=== PATIENT | male | born 1975 | race Caucasian/White ===

== ENCOUNTER 2016-03-28 07:18 | Emergency (ER) | payer OTHER ==
[2016-03-28 07:32] VITALS: BP 130/74; PULSE 85; TEMP 97.9; BMI 34.2
[2016-03-28] MEDS ORDERED: KETOROLAC TROMETHAMINE 60 MG/2 ML VIAL IM ONE (07:59)
[2016-03-28] MEDS ORDERED: CYCLOBENZAPRINE HCL 10 MG TABLET (FP) PO ONE (07:59)
[2016-03-28] MEDS ORDERED: CYCLOBENZAPRINE HCL 10 MG TABLET (FP) ONE (08:02)
[2016-03-28] MEDS ORDERED: KETOROLAC TROMETHAMINE 60 MG/2 ML VIAL ONE (08:02)
--- NOTE | 2016-03-28 08:03 | PDOC ---
History of Present Illness - General Chief Complaint: Back Pain Stated Complaint: UPPER BACK PAIN Time Seen by Provider: 03/28/16 07:42 - History of Present Illness Initial Comments: 03/28/16 12:38 Chief complaint: Right upper back pain History of present illness: Sharp intermittent right upper back pain for several days, aggravated by movement and deep inspiration. No trauma, injury, or unusual physical exertion. Review of systems: No fevers/chills, cough, URI symptoms, sore throat, anterior chest pain, shortness of breath, abdominal pain, nausea, vomiting, diarrhea, visual or focal neurologic symptoms Past medical history: On disability for chronic low back pain. Pain is now stable. Social/family history reviewed and noncontributory Physical exam: Alert and oriented well-developed well-nourished no acute distress cooperative Afebrile, vital signs normal Head atraumatic. PERRLA, fundi benign, ENT clear Neck supple without mass or nodes Chest clear No chest wall and rib cage deformity or tenderness. No trigger point tenderness could be elicited the posterior chest CV S1 and S2 normal without murmur or gallop pulses full and symmetric no JVD or edema no bruits Abdomen soft nontender without mass or organomegaly. No CVAT Impression: Musculoskeletal pain, right upper back, no sign of cardiac or pulmonary disease Plan: Symptomatic treatment, rest, heat, and follow up primary physician if no improvement. Return to ER if further symptoms develop. Patient fully ambulatory and in no pain or other distress upon discharge with family to follow up as directed Past History - Past Medical History Allergies/Adverse Reactions: Allergies Allergy/AdvReac Type Severity Reaction Status Date / Time No Known Allergies Allergy Verified 03/28/16 07:25 Home Medications: Ambulatory Orders Sertraline HCl [Zoloft -] 150 mg PO DAILY 08/30/13 Aripiprazole [Abilify -] 25 mg PO DAILY 09/06/14 Cyclobenzaprine HCl [Flexeril] 10 mg PO TID #14 tablet 03/28/16 Diazepam [Valium] 10 mg PO ONCE 03/28/16 Ibuprofen [Motrin -] 800 mg PO DAILY 03/28/16 Anemia: No Asthma: No Cancer: No Cardiac Disorders: No CVA: No COPD: No CHF: No Dementia: No Diabetes: Yes (on/off meds, lost weight ) GI Disorders: No Disorders: No HTN: No Hypercholesterolemia: No Liver Disease: No Psychiatric Problems: (ANXIETY) Suicide Attempt (Hx): No Seizures: No Thyroid Disease: No Other medical history: CHRONIC LOW BACK PAIN - Surgical History Abdominal Surgery: Yes (bariatric surgery) Appendectomy: No Cardiac Surgery: No Cholecystectomy: No Lung Surgery: No Neurologic Surgery: No Orthopedic Surgery: No - Family Disease History Family Disease History: Diabetes: Grandparents, Mother - Psycho/Social/Smoking Cessation Hx Anxiety: Yes Suicidal Ideation: No Smoking Status: Yes Smoking History: Current some day smoker Have you smoked in the past 12 months: Yes Number of Cigarettes Smoked Daily: 3 Information on smoking cessation initiated: Yes 'Breaking Loose' booklet given: 03/28/16 Hx Alcohol Use: No Drug/Substance Use Hx: No Substance Use Type: None Hx Substance Use Treatment: No *Physical Exam - Vital Signs Last Vital Signs Temp Pulse Resp BP Pulse Ox 97.9 F 85 16 130/74 97 03/28/16 07:28 03/28/16 07:28 03/28/16 07:28 03/28/16 07:28 03/28/16 07:28 *DC/Admit/Observation/Transfer Diagnosis at time of Disposition: Musculoskeletal pain - Discharge Dispostion Disposition: HOME Condition at time of disposition: Improved Admit: No - Prescriptions Prescriptions: Cyclobenzaprine HCl [Flexeril] 10 mg PO TID #14 tablet - Patient Instructions Printed Discharge Instructions: DI for Musculoskeletal Pain Additional Instructions: Rest, apply heat to the affected area, take medication as directed. If no improvement, discuss with your back specialist during a regular visit next week. If further symptoms develop or if the pain worsens, see primary physician or return to the emergency room.
== END 2016-03-28 09:11 | disposition home or self-care (01) ==
LOC: FER 07:18
PROC: 3E0233Z Introduction of Anti-inflammatory into Muscle, Percutaneous Approach (ICD-10-PCS; principal; 2016-03-28)
DX: M79.1 Myalgia (principal); G89.29 Other chronic pain; F41.9 Anxiety disorder, unspecified; E11.9 Type 2 diabetes mellitus without complications; Z98.84 Bariatric surgery status; F17.210 Nicotine dependence, cigarettes, uncomplicated
CPT/HCPCS: 99282-25

== ENCOUNTER 2017-01-02 18:39 | Observation (INO) | payer OTHER ==
--- NOTE | 2017-01-02 19:12 | PDOC ---
History of Present Illness - General History Source: Patient Exam Limitations: No Limitations - History of Present Illness Initial Comments: 01/02/17 19:35 41 y/o M with PMHx of previous diabetes (no currently on medications), lap band surgery, presents to the ED with epigastric pain and productive cough for a week. He states he has coughed up green-brown sputum. Patient also reports occasional chills, subjective fever, headache and sore throat. He also states he shaved his scrotum and had an ingrown hair that he continued to pick at. He states it bled a little but is now draining pus. Patient reports to smoking 2-3 cigarettes per day. He denies chest pain, SOB. Denies nausea, vomiting, diarrhea. Denies urinary complaints. PAST MEDICAL HISTORY: previous diabetes PAST SURGICAL HISTORY: lap band surgery FAMILY HISTORY: no pertinent history SOCIAL HISTORY: Pt lives with family and is employed. MEDICATIONS: reviewed ALLERGIES: As per nursing notes Review of Systems: General: (+) chills, subjective fever. No weakness, no weight loss HEENT: (+) sore throat. No change in vision. No ear pain CardioVascular: No chest pain or shortness of breath Respiratory: (+) productive cough, sore throat. No wheezing. Gastrointestinal: (+) epigastric pain. no nausea, vomiting, diarrhea or constipation, No rectal bleeding Genitourinary: (+) testicular abscess. No dysuria, hematuria, or frequency Musculoskeletal: No joint or muscle pain or swelling Neurologic: (+) headache. No vertigo, dizziness or loss of consciousness Psychiatric: No depression Skin: No rashes or easy bruising Endocrine: No increased thirst or abnormal weight change Allergic: No skin or latex allergy All other systems reviewed and normal Physical Exam: General: Well-nourished well-developed individual, no acute distress HEENT: Throat: Normal, tonsils normal, no erythema or exudate Neck: Supple, no meningeal signs, no lymphadenopathy Eyes: Pupils equal reactive and round, extraocular motion intact Chest: Nontender to palpation Cardiac: S1-S2 normal, regular rate and rhythm, no murmurs rubs or gallops Respiratory: Lungs clear to auscultation bilateral Abdomen: Soft, nondistended, normal bowel sounds, nontender to palpation diffusely Extremities: Warm, dry, no cyanosis, clubbing, or edema Skin: No rashes Neuro: Alert and oriented x3, nonfocal exam, grossly intact, normal gait Psych: Normal mood and affect : right upper scrotum has 3 x 4 cm area of induration with a draining abscess. Abscess opening is approximately cm with purulent discharge. Right sided inguinal lymphadenopathy. No tenderness or increased discomfort on palpation of the testicle. <Bess Regan A - Last Filed: 01/02/17 20:02> - General History Source: Patient Exam Limitations: No Limitations - History of Present Illness Initial Comments: 01/02/17 22:45 A portion of this note was documented by scribe services under my direction. I have reviewed the details of the note, within reason, and agree with the documentation. The case summary and management plan written by me. ASSESSMENT and plan: This is a 41-year-old male who comes in complaining of 2 complaints one a productive cough and a scrotal abscess. Patient had a workup including CBC which was normal and chemistries and urinalysis. Patient also had an ultrasound of his scrotum which showed a large 4.4 x 1.8 cm scrotal abscess Patient had a chest x-ray that was normal Patient's EKG showed normal sinus rhythm no acute ST-T wave changes normal intervals Discussed FINDINGS WITH THE UROLOGIST DR. DEAN who well drained the abscess tomorrow <Rhonda Carter I - Last Filed: 01/02/17 23:06> - General Chief Complaint: Cold Symptoms Stated Complaint: COUGH Time Seen by Provider: 01/02/17 19:11 Past History <Bess Regan A - Last Filed: 01/02/17 20:02> - Past Medical History Anemia: No Asthma: No Cancer: No Cardiac Disorders: No CVA: No COPD: No CHF: No Dementia: No Diabetes: Yes (on/off meds, lost weight ) GI Disorders: No Disorders: No HTN: No Hypercholesterolemia: No Liver Disease: No Psychiatric Problems: (ANXIETY) Seizures: No Thyroid Disease: No - Surgical History Abdominal Surgery: Yes (bariatric surgery) Appendectomy: No Cardiac Surgery: No Cholecystectomy: No Lung Surgery: No Neurologic Surgery: No Orthopedic Surgery: No - Family Disease History Family Disease History: Diabetes: Grandparents, Mother - Suicide/Smoking/Psychosocial Hx Smoking Status: Yes Smoking History: Current some day smoker Have you smoked in the past 12 months: Yes Number of Cigarettes Smoked Daily: 3 Information on smoking cessation initiated: Yes 'Breaking Loose' booklet given: 01/02/17 Hx Alcohol Use: No Drug/Substance Use Hx: No Substance Use Type: None Hx Substance Use Treatment: No <Rhonda Carter I - Last Filed: 01/02/17 23:06> - Past Medical History Allergies/Adverse Reactions: Allergies Allergy/AdvReac Type Severity Reaction Status Date / Time No Known Allergies Allergy Verified 01/02/17 18:57 Home Medications: Ambulatory Orders Sertraline HCl [Zoloft -] 150 mg PO DAILY 08/30/13 Aripiprazole [Abilify -] 25 mg PO DAILY 09/06/14 Cyclobenzaprine HCl [Flexeril] 10 mg PO TID #14 tablet 03/28/16 Ibuprofen [Motrin -] 800 mg PO PRN PRN 03/28/16 *Physical Exam - Vital Signs Last Vital Signs Temp Pulse Resp BP Pulse Ox 99.1 F 92 H 20 116/77 99 01/02/17 18:39 01/02/17 18:39 01/02/17 18:39 01/02/17 18:39 01/02/17 18:39 <Bess Regan - Last Filed: 01/02/17 20:02> - Vital Signs Last Vital Signs Temp Pulse Resp BP Pulse Ox 99.1 F 92 H 20 116/77 99 01/02/17 18:39 01/02/17 18:39 01/02/17 18:39 01/02/17 18:39 01/02/17 18:39 <Rhonda Carter I - Last Filed: 01/02/17 23:06> ED Treatment Course - LABORATORY CBC & Chemistry Diagram: 01/02/17 19:25 01/02/17 19:25 <Bess Regan - Last Filed: 01/02/17 20:02> - LABORATORY CBC & Chemistry Diagram: 01/02/17 19:25 01/02/17 19:25 <Rhonda Carter I - Last Filed: 01/02/17 23:06> *DC/Admit/Observation/Transfer - Attestations Scribe Attestion: 01/02/17 19:35 Documentation prepared by Bess Regan, acting as medical administrative technician for Rhonda Carter MD. <Bess Regan - Last Filed: 01/02/17 20:02> - Discharge Dispostion Admit: Yes <Rhonda Carter I - Last Filed: 01/02/17 23:06> Diagnosis at time of Disposition: Abscess of scrotum
[2017-01-02 19:40] LABS: BASOPHIL 0.4 % (0-2.0); EOSINOPHIL 2.8 % (0-4.5); MCH 28.2 pg (25.7-33.7); MCHC 33.4 g/dl (32.0-35.9); MEAN CELL VOLUME 84.5 fl (80-96); NEUTROPHILS 61.8 % (42.8-82.8); PLATELET COUNT 218 K/MM3 (134-434); RDW 13.4 % (11.9-15.9); WHITE BLOOD COUNT 9.2 K/mm3 (4.0-10.8)
[2017-01-02 19:52] LABS: ALBUMIN 3.9 g/dl (3.5-5.0); ALK PHOS 60 U/L (32-92); ANION GAP 5 (8-16); BILIRUBIN,TOTAL 0.1 mg/dl (0.2-1.0); CALCIUM 9.2 mg/dl (8.4-10.2); CO2 27 mmol/L (22-28); CREATININE 0.9 mg/dl (0.6-1.3); GLUCOSE,RANDOM 96 mg/dl (74-106); SGOT/AST 21 U/L (10-42); SGPT/ALT 36 U/L (10-40); TOT PROT 7.8 g/dl (6.4-8.3)
[2017-01-02 19:57] LABS: URINE APPEARANCE Clear; URINE BILIRUBIN Negative (NEGATIVE); URINE GLUCOSE (UA) Negative (NEGATIVE); URINE KETONE Negative (NEGATIVE); URINE LEUK ESTERASE Negative (NEGATIVE); URINE NITRITE Negative (NEGATIVE); URINE PROTEIN Negative (NEGATIVE); URINE UROBILINOGEN 0.2 (0.2-1.0)
[2017-01-02 19:58] LABS: URINE BLOOD 2+ (NEGATIVE); URINE COLOR YELLOW
[2017-01-02 20:16] LABS: URINE BACTERIA FEW /hpf (NEGATIVE); URINE WBC 0-2 (3-5)
[2017-01-02] MEDS ORDERED: cefTRIAXone 1 GM/50 ML BAG (PRE-DOCKED) IVPB ONE (22:03)
[2017-01-02] MEDS ORDERED: cefTRIAXone SODIUM 1 GM VIAL ONE (22:07)
[2017-01-02 23:31] VITALS: TEMP 98.3
[2017-01-02] MEDS ORDERED: ZOLPIDEM TARTRATE 5 MG TABLET PO PRN (23:37)
[2017-01-02] MEDS ORDERED: guaiFENesin 200 MG/10 ML 10 ML UNIT-DOSE CUPS PO PRN (23:56)
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
[2017-01-03] VITALS: BMI 33.0
[2017-01-03] MEDS: CLINDAMYCIN 600MG PREMIX IVPB 50 ML IVPB SCH ×4 (00:19→09:50)
[2017-01-03 06:33] VITALS: BP 125/92; PULSE 87
[2017-01-03] MEDS ORDERED: INSULIN SLIDING SCALE (NOVOLOG) 1 VIAL SQ SCH (07:00)
--- NOTE | 2017-01-03 08:05 | CON.GU ---
Consult Consult Specialty:: Referred by:: Balaji Reason for Consultation:: R scrotal abscess - History of Present Illness Chief Complaint: R scrotal swelling History of Present Illness: 41 yo m w hx DM pres to ED w various complaints including R scrotal swelling and pain which spontaneously drained pus. - History Source History Provided By: Patient, Medical Record Limitations to Obtaining History: No Limitations - Alcohol/Substance Use Hx Alcohol Use: Yes (occasional) - Smoking History Smoking history: Current some day smoker Have you smoked in the past 12 months: Yes Aproximately how many cigarettes per day: 3 Home Medications - Allergies Allergies/Adverse Reactions: Allergies Allergy/AdvReac Type Severity Reaction Status Date / Time No Known Allergies Allergy Verified 01/02/17 18:57 - Home Medications Home Medications: Ambulatory Orders Sertraline HCl [Zoloft -] 150 mg PO DAILY 08/30/13 Aripiprazole [Abilify -] 25 mg PO DAILY 09/06/14 Cyclobenzaprine HCl [Flexeril] 10 mg PO TID #14 tablet 03/28/16 Ibuprofen [Motrin -] 800 mg PO PRN PRN 03/28/16 Physical Exam- Vital Signs: Vital Signs Temperature 98.3 F 01/03/17 06:31 Pulse Rate 87 01/03/17 06:31 Respiratory Rate 20 01/03/17 06:31 Blood Pressure 125/92 01/03/17 06:31 O2 Sat by Pulse Oximetry (%) 99 01/03/17 06:31 Scrotum: Yes: Induration (abscess s/p drainage) Imaging - Results Ultrasound: Report Reviewed Assessment/Plan Imp: R scrotal abscess s/p spontaneous drainage Rec: OK for disch on augmentin 875 mg po bid x 1 week, f/u in my office 1 week.
[2017-01-03 08:12] LABS: BASOPHIL 1.1 % (0-2.0); EOSINOPHIL 3.4 % (0-4.5); MCH 27.8 pg (25.7-33.7); MCHC 33.1 g/dl (32.0-35.9); MEAN CELL VOLUME 83.9 fl (80-96); MEAN PLT VOLUME 9.9 fl (7.5-11.1); NEUTROPHILS 50.6 % (42.8-82.8); PLATELET COUNT 226 K/MM3 (134-434); RDW 13.6 % (11.9-15.9); WHITE BLOOD COUNT 10.6 K/mm3 (4.0-10.8)
--- NOTE | 2017-01-03 08:12 | DS ---
Physical Exam: SUBJECTIVE: Patient seen and examined, reports feeling well, denies any tactile fever, OBJECTIVE:This is a 41 year old male with a past medical history of DM (on no current meds), lap band surgery who presents with complaint of cough. Had epigastric discomfort a few days ago which has resolved. Also reported to ED physician that he has a lump in his scrotum which drained pus earlier last week. He denies pain to his scrotal area but reports that he has not had an erection recently. ER course was notable for: (1) WBC 9.2 (2) CXR neg Vital Signs Period Temp Pulse Resp BP Sys/Clay Pulse Ox Last 24 Hr 98.3 F-98.3 F 82-87 20-20 125-141/68-92 99-100 PHYSICAL EXAM GENERAL: Awake, alert, and fully oriented, in no acute distress. HEAD: Normal with no signs of trauma. EYES: Pupils equal, round and reactive to light, extraocular movements intact, sclera anicteric, conjunctiva clear. No lid lag. EARS, NOSE, THROAT: Ears normal, nares patent, oropharynx clear without exudates. Moist mucous membranes. NECK: Normal range of motion, supple without lymphadenopathy, JVD, or masses. LUNGS: Breath sounds equal, clear to auscultation bilaterally. No wheezes, and no crackles. No accessory muscle use. HEART: Regular rate and rhythm, normal S1 and S2 without murmur, rub or gallop. ABDOMEN: Soft, nontender, not distended, normoactive bowel sounds, no guarding, no rebound, no masses. No hepatomegaly or splenomegaly GENITOURINARY: Right upper scrotum with open area, 3mm, whitish discharge noted , underlying approx 3x4cm area of induration, no erythema MUSCULOSKELETAL: Normal range of motion at all joints. No bony deformities or tenderness. No CVA tenderness. UPPER EXTREMITIES: 2+ pulses, warm, well-perfused. No cyanosis. No clubbing. No peripheral edema. LOWER EXTREMITIES: 2+ pulses, warm, well-perfused. No calf tenderness. No peripheral edema. NEUROLOGICAL: Cranial nerves II-XII intact. Normal speech. Normal gait. PSYCHIATRIC: Cooperative. Good eye contact. Appropriate mood and affect. SKIN: Warm, dry, normal turgor, no rashes or lesions noted, normal capillary refill. LABS Laboratory Results - last 24 hr 01/03/17 06:37 POC Glucometer 76 CBC WBC 9.2 K/mm3 (4.0-10.8) 01/02/17 19:25 RBC 4.75 M/mm3 (4.00-5.60) 01/02/17 19:25 Hgb 13.4 GM/dl (11.7-16.9) 01/02/17 19:25 Hct 40.1 % (35.4-49) 01/02/17 19:25 MCV 84.5 fl (80-96) 01/02/17 19:25 MCH 28.2 pg (25.7-33.7) 01/02/17 19:25 MCHC 33.4 g/dl (32.0-35.9) 01/02/17 19:25 RDW 13.4 % (11.9-15.9) 01/02/17 19:25 Plt Count 218 K/MM3 (134-434) 01/02/17 19:25 MPV 10.0 fl (7.5-11.1) 01/02/17 19:25 Neutrophils % 61.8 % (42.8-82.8) 01/02/17 19:25 Lymphocytes % 26.3 % (8-40) 01/02/17 19:25 Monocytes % 8.7 % (3.8-10.2) 01/02/17 19:25 Eosinophils % 2.8 % (0-4.5) 01/02/17 19:25 Basophils % 0.4 % (0-2.0) 01/02/17 19:25 CMP Sodium 135 mmol/L (136-145) L 01/02/17 19:25 Potassium 4.6 mmol/L (3.5-5.1) 01/02/17 19:25 Chloride 103 mmol/L (98-107) 01/02/17 19:25 Carbon Dioxide 27 mmol/L (22-28) 01/02/17 19:25 Anion Gap 5 (8-16) L 01/02/17 19:25 BUN 12 mg/dl (7-18) 01/02/17 19:25 Creatinine 0.9 mg/dl (0.6-1.3) 01/02/17 19:25 Creat Clearance w eGFR > 60 (>60) 01/02/17 19:25 POC Glucometer 76 UNITS (()) 01/03/17 06:37 Random Glucose 96 mg/dl (74-106) 01/02/17 19:25 Calcium 9.2 mg/dl (8.4-10.2) 01/02/17 19:25 Total Bilirubin 0.1 mg/dl (0.2-1.0) L D 01/02/17 19:25 AST 21 U/L (10-42) 01/02/17 19:25 ALT 36 U/L (10-40) 01/02/17 19:25 Alkaline Phosphatase 60 U/L (32-92) 01/02/17 19:25 Total Protein 7.8 g/dl (6.4-8.3) 01/02/17 19:25 Albumin 3.9 g/dl (3.5-5.0) 01/02/17 19:25 ECG NSR, rate 80, QTC [address] changes Possible L atrial enlargement Radiology Results Chest x ray, PA and Lateral Comparison: 09/30/2016 The cardiac silhouette is within normal limits in size. The lung is clear. Mediastinum and visualized osseous structures appear grossly intact . Status post gastric banding again noted Impression Unremarkable examination without evidence of acute lung disease. Reported By: Pantera Callahan MD 01/02/172036 HOSPITAL COURSE: Cough - CXR neg, no s/s acute pneumonia - treat symptomatically, guaifenesin Right scrotal abscess - , Dr Alvarado consulted and evaluated patient, requested ceftriaxone, given in ED, will require outpatient followup DM - sugar 218, ? elevated due to infectious process vs recurrence - hemoglobin a1c 5.4 - BGM AC/HS with novolog coverage. Date of Admission:01/02/17 Date of Discharge: 01/03/17 Minutes to complete discharge: 45 Discharge Summary Reason For Visit: COUGH Current Active Problems Scrotal abscess (Acute) Condition: Improved - Instructions Diet, Activity, Other Instructions: resume all medications as prescribed augmentin twice a day for the next 7 days. please follow up with the urologist, Dr Alvarado within 1 week if any new or persistent symptoms develop please return to the emergency department Referrals: Michael Alvarado MD [Staff Physician] - 1 Week Disposition: HOME - Home Medications Comprehensive Discharge Medication List: Ambulatory Orders Sertraline HCl [Zoloft -] 150 mg PO DAILY 08/30/13 Aripiprazole [Abilify -] 25 mg PO DAILY 09/06/14 Cyclobenzaprine HCl [Flexeril] 10 mg PO TID #14 tablet 03/28/16 Ibuprofen [Motrin -] 800 mg PO PRN PRN 03/28/16 This patient is new to me today: No Emergency Visit: Yes ED Registration Date: 01/02/17 Care time: The patient presented to the Emergency Department on the above date and was hospitalized for further evaluation of their emergent condition. Critical Care patient: No - Discharge Referral Referred to [facility] No
[2017-01-03 08:30] LABS: ANION GAP 8 (8-16); CALCIUM 9.1 mg/dl (8.4-10.2); CO2 26 mmol/L (22-28); GLUCOSE,RANDOM 90 mg/dl (74-106); MAGNESIUM 1.9 mg/dL (1.8-2.4); PHOSPHOROUS 3.8 mg/dl (2.5-4.6)
[2017-01-03] MEDS ORDERED: PT OWN MED DRAWER 7, Y5N ONE (09:41)
[2017-01-03] MEDS ORDERED: ARIPiprazole 20 MG TABLET PO SCH (10:00)
[2017-01-03] MEDS ORDERED: ARIPIPRAZOLE PO SCH (10:00)
[2017-01-03] MEDS ORDERED: SERTRALINE HCL 50 MG TABLET (FP) PO SCH (10:00)
[2017-01-03] MEDS ORDERED: FLU VACCINE QUAD 60 MCG/0.5 ML (MDV 17-18) IM ONE (11:00)
--- NOTE | 2017-01-03 18:03 | EKG ---
Test Reason : Blood Pressure : / mmHG Vent. Rate : 080 BPM Atrial Rate : 080 BPM P-R Int : 172 ms QRS Dur : 098 ms QT Int : 390 ms P-R-T Axes : 055 068 034 degrees QTc Int : 449 ms NORMAL SINUS RHYTHM POSSIBLE LEFT ATRIAL ENLARGEMENT [facility] WHEN COMPARED WITH ECG OF 05-AUG-2011 00:52, COMPARED TO EKG NO SIGNIFICANT CHANGE IS FOUND Confirmed by MD ABI, UMESH ([id number]) on 01/03/2017 6:02:40 PM Referred By: DR URBAN Confirmed By:UMESH ALEX MD
== END 2017-01-03 10:11 | disposition home or self-care (01) ==
LOC: FER 18:39 → FM/S 23:13
PROVIDERS: ADMIT Internal Medicine; ATTEND Nurse Practitioner Family
PROC: 3E03329 Introduction of Other Anti-infective into Peripheral Vein, Percutaneous Approach (ICD-10-PCS; principal; 2017-01-02)
PROC: 3E0234Z Introduction of Serum, Toxoid and Vaccine into Muscle, Percutaneous Approach (ICD-10-PCS; 2017-01-02)
DX: N49.2 Inflammatory disorders of scrotum (principal); R05 Cough; Z98.84 Bariatric surgery status; Z86.39 Personal history of other endocrine, nutritional and metabolic disease; F17.210 Nicotine dependence, cigarettes, uncomplicated
CPT/HCPCS: 36415; 71020-TC; 76882; 80048; 80053; 81003; 81015; 83036; 83735; 84100; 85025; 87070; 87186; 87205; 87804; 90471; 90688; 93005; 96374; 99285-25; G0378

== ENCOUNTER 2017-09-12 18:13 | Emergency (ER) | payer OTHER ==
[2017-09-12 18:20] VITALS: BP 123/77; PULSE 93; TEMP 100; BMI 31.5
[2017-09-12] MEDS ORDERED: FAMOTIDINE 20 MG/50 ML IVPB 20 MG/50 ML MG IVPB ONE ×2 (18:44→18:50)
[2017-09-12] MEDS ORDERED: SODIUM CHLORIDE 0.9% 1000 ML INFUS.BAG IV ONE (18:44)
--- NOTE | 2017-09-12 18:44 | PDOC ---
History of Present Illness - General History Source: Patient Exam Limitations: No Limitations <Nevaeh Herrera - Last Filed: 09/12/17 18:41> - General History Source: Patient Exam Limitations: No Limitations - History of Present Illness Initial Comments: 09/12/17 18:48 The patient is a 42 year old male with a significant past medical history of diabetes (no currently on medications), lap band surgery(2009), who presents to the emergency department with abdominal pain, nausea, and vomiting for approximately 1 week. The patient reports several episodes of nausea and nonbloody/nonbilious vomiting 1 week ago after eating a burger. Patient reports his symptoms improved, however, 4 days ago he developed lower abdominal pain with associated nausea/vomiting episodes. He reports his symptoms are exacerbated when eating dairy. He denies any dysuria, hematuria, frequency, urgency, or urinary incontinence. He reports mild epigastric discomfort, which he associated to drinking 6 cups of coffee daily. Patient endorses 3 weeks of right upper quadrant pain, but denies any diarrhea, constipation, melena, or hematochezia. He reports some chills, but denies any fever, cough, headache, or dizziness. He denies any chest pain, shortness of breath, diaphoresis, or palpitations. He denies any recent travel or sick contacts. Allergies: NKDA Past Surgical History: Gastric bypass Social History: Ocassional smoker. No ETOH or recreational drug use. <Stephanie Mckeon - Last Filed: 09/12/17 20:33> <Ashok Montano - Last Filed: 09/13/17 06:55> - General Chief Complaint: Pain, Acute Stated Complaint: abd pain, acid reflux x 1 mnth Time Seen by Provider: 09/12/17 18:19 Past History - Past Medical History Anemia: No Asthma: No Cancer: No Cardiac Disorders: No CVA: No COPD: No CHF: No Dementia: No Diabetes: Yes (on/off meds, lost weight ) GI Disorders: No Disorders: No HTN: No Hypercholesterolemia: No Liver Disease: No Psychiatric Problems: (ANXIETY) Seizures: No Thyroid Disease: No Other medical history: gerd - Surgical History Abdominal Surgery: Yes (bariatric surgery) Appendectomy: No Cardiac Surgery: No Cholecystectomy: No Lung Surgery: No Neurologic Surgery: No Orthopedic Surgery: No - Family Disease History Family Disease History: Diabetes: Grandparents, Mother - Suicide/Smoking/Psychosocial Hx Smoking Status: Yes Smoking History: Current some day smoker Have you smoked in the past 12 months: Yes Number of Cigarettes Smoked Daily: 3 Information on smoking cessation initiated: Yes 'Breaking Loose' booklet given: 09/12/17 Hx Alcohol Use: No Drug/Substance Use Hx: No Substance Use Type: None Hx Substance Use Treatment: No <Nevaeh Herrera - Last Filed: 09/12/17 18:41> <Stephanie Mckeon - Last Filed: 09/12/17 20:33> <Ashok Montano - Last Filed: 09/13/17 06:55> - Past Medical History Allergies/Adverse Reactions: Allergies Allergy/AdvReac Type Severity Reaction Status Date / Time No Known Allergies Allergy Verified 09/12/17 18:15 Home Medications: Ambulatory Orders Sertraline HCl [Zoloft -] 150 mg PO DAILY 08/30/13 Aripiprazole [Abilify -] 25 mg PO DAILY 09/06/14 Omeprazole 20 mg PO DAILY #30 tablet. 09/12/17 Omeprazole 40 mg PO DAILY #60 tablet. 09/12/17 Oxycodone HCl/Acetaminophen [Percocet 5-325 mg Tablet] 1 tab PO ASDIR 09/12/17 Ranitidine HCl [Zantac] 150 mg PO BID 09/12/17 Zolpidem Tartrate [Ambien] 10 mg PO HS 09/12/17 Review of Systems - Review of Systems Able to Perform ROS?: Yes Comments:: 09/12/17 18:48 GENERAL/CONSTITUTIONAL: +Chills. No fever. No weakness. HEAD, EYES, EARS, NOSE AND THROAT: No change in vision. No ear pain or discharge. No sore throat. CARDIOVASCULAR: No chest pain or shortness of breath. RESPIRATORY: No cough, wheezing, or hemoptysis. GASTROINTESTINAL: +Abdominal pain, nausea, vomiting. No diarrhea, constipation, melena, or hematochezia. GENITOURINARY: No dysuria, frequency, or change in urination. MUSCULOSKELETAL: No joint or muscle swelling or pain. No neck or back pain. SKIN: No rash NEUROLOGIC: No headache, vertigo, loss of consciousness, or change in strength/ sensation. ENDOCRINE: No increased thirst. No abnormal weight change. HEMATOLOGIC/LYMPHATIC: No anemia, easy bleeding, or history of blood clots. ALLERGIC/IMMUNOLOGIC: No hives or skin allergy. <MikeStephanie - Last Filed: 09/12/17 20:33> *Physical Exam - Vital Signs Last Vital Signs Temp Pulse Resp BP Pulse Ox 100.0 F H 93 H 18 123/77 100 09/12/17 18:15 09/12/17 18:15 09/12/17 18:15 09/12/17 18:15 09/12/17 18:15 <Nevaeh Herrera - Last Filed: 09/12/17 18:41> - Vital Signs Last Vital Signs Temp Pulse Resp BP Pulse Ox 100.0 F H 93 H 18 123/77 100 09/12/17 18:15 09/12/17 18:15 09/12/17 18:15 09/12/17 18:15 09/12/17 18:15 - Physical Exam Comments: 09/12/17 18:49 GENERAL: Awake, alert, and fully oriented, in no acute distress HEAD: No signs of trauma EYES: PERRLA, EOMI, sclera anicteric, conjunctiva clear ENT: Auricles normal inspection, hearing grossly normal, nares patent. Moist mucosa NECK: Normal ROM, supple, no lymphadenopathy, JVD, or masses LUNGS: Breath sounds equal, clear to auscultation bilaterally. No wheezes, and no crackles HEART: Regular rate and rhythm, normal S1 and S2, no murmurs, rubs or gallops ABDOMEN: +Suprapubic lower quadrant tenderness, but no rebound or guarding. Negative [place] Soft, nontender, normoactive bowel sounds. No masses EXTREMITIES: Normal range of motion, no edema. No erythema or tenderness. DP/PT pulses 2+ and symmetric. Warm and well perfused. NEUROLOGICAL: Moves all extremities. Normal speech, normal gait SKIN: Warm, Dry, normal turgor, no rashes or lesions noted. <MikeNadirakiet - Last Filed: 09/12/17 20:33> - Vital Signs Last Vital Signs Temp Pulse Resp BP Pulse Ox 100.0 F H 93 H 18 123/77 100 09/12/17 18:15 09/12/17 18:15 06/22/18 18:15 09/12/17 18:15 09/12/17 18:15 <Ashok Montano - Last Filed: 09/13/17 06:55> ED Treatment Course - LABORATORY CBC & Chemistry Diagram: 09/12/17 18:50 09/12/17 18:50 <Stephanie Mckeon - Last Filed: 09/12/17 20:33> - LABORATORY CBC & Chemistry Diagram: 09/12/17 18:50 09/12/17 18:50 - ADDITIONAL ORDERS Additional order review: Laboratory Results 09/12/17 09/12/17 18:50 18:50 Sodium 138 Potassium 4.5 Chloride 102 Carbon Dioxide 27 Anion Gap 9 BUN 13 Creatinine 0.9 Creat Clearance w eGFR > 60 Random Glucose 79 Calcium 9.3 Total Bilirubin 1.0 AST 34 D ALT 56 H D Alkaline Phosphatase 59 Total Protein 8.0 Albumin 4.4 Lipase 108 Urine Color Yellow Urine Appearance Clear Urine pH 5.0 D Ur Specific [place] 1.025 Urine Protein Negative Urine Glucose (UA) Negative Urine Ketones 2+ H Urine Blood Trace-lysed H Urine Nitrite Negative Urine Bilirubin 1+ H Urine Urobilinogen 0.2 Ur Leukocyte Esterase Negative Urine RBC 2-5 Urine WBC 0-2 Urine Bacteria Few 09/12/17 18:50 RBC 4.99 MCV 84.5 MCHC 33.9 RDW 14.0 MPV 9.8 Neutrophils % 63.8 D Lymphocytes % 27.3 D Monocytes % 5.9 Eosinophils % 1.2 Basophils % 1.8 - Medications Given in the ED: ED Medications Discontinued Medications Generic Name Dose Route Start Last Admin Trade Name Freq PRN Reason Stop Dose Admin Famotidine/Sodium Chloride 20 mg in 50 mls @ 100 mls/hr 09/12/17 18:44 18:59 Pepcid 20 Mg Premixed Ivpb - IVPB 09/12/17 19:13 100 mls/hr ONCE ONE Administration Sodium Chloride 1,000 ml 09/12/17 18:44 09/12/17 18:59 Normal Saline - IV 09/12/17 18:45 1,000 ml ONCE ONE Administration <Ashok Montano - Last Filed: 09/13/17 06:55> Medical Decision Making - Medical Decision Making 09/12/17 18:42 42 yo male with h/o gastric lap surgery 2010, here wtih 4 - 5 days lower abd pain, n/ v. pt states last emesis 3 days ago. subjective f/c. no urinary complaints. on exam pt with suprapubic ttp, lower quad ttp. no rebound no guarding. neg garcia's. no cva tendernss. differential: slipped band. diveritculitis, colitis, uti pyelo. plan ct a/p iv fluids labs, reassess. <Nevaeh Herrera - Last Filed: 09/12/17 18:41> - Medical Decision Making 09/13/17 06:55 ct findings and symptomotology c/w esophagitis initiate PPI has fu with gastric surgery <Ashok Montano - Last Filed: 09/13/17 06:55> *DC/Admit/Observation/Transfer <Nevaeh Herrera - Last Filed: 09/12/17 18:41> - Attestations Scribe Attestion: 09/12/17 18:49 Documentation prepared by Stephanie Mckeon, acting as medical support assistant for Nevaeh Herrera MD. <Stephanie Mckeon - Last Filed: 09/12/17 20:33> <Ashok Montano - Last Filed: 09/13/17 06:55> Diagnosis at time of Disposition: Esophagitis - Discharge Dispostion Disposition: HOME Condition at time of disposition: Stable - Prescriptions Prescriptions: Omeprazole 40 mg PO DAILY #60 tablet. Omeprazole 20 mg PO DAILY #30 tablet. - Patient Instructions Printed Discharge Instructions: DI for Esophagitis
[2017-09-12 18:54] LABS: URINE APPEARANCE Clear; URINE BILIRUBIN 1+ (NEGATIVE); URINE GLUCOSE (UA) Negative (NEGATIVE); URINE KETONE 2+ (NEGATIVE); URINE LEUK ESTERASE Negative (NEGATIVE); URINE NITRITE Negative (NEGATIVE); URINE PROTEIN Negative (NEGATIVE); URINE UROBILINOGEN 0.2 (0.2-1.0)
[2017-09-12 18:55] LABS: URINE COLOR YELLOW
[2017-09-12 19:01] LABS: BASO % 1.8 % (0-2.0); EOS % 1.2 % (0-4.5); HEMATOCRIT 42.2 % (35.4-49); HEMOGLOBIN 14.3 GM/dl (11.7-16.9); LYMPH % 27.3 % (8-40); MCH 28.7 pg (25.7-33.7); MCHC 33.9 g/dl (32.0-35.9); MEAN CELL VOLUME 84.5 fl (80-96); MEAN PLT VOLUME 9.8 fl (7.5-11.1); MONO % 5.9 % (3.8-10.2); NEUT % 63.8 % (42.8-82.8); PLATELET COUNT 237 K/MM3 (134-434); RBC 4.99 M/mm3 (4.00-5.60); WHITE BLOOD COUNT 13.9 K/mm3 (4.0-10.8)
[2017-09-12 19:09] LABS: BLOOD UREA NITROGEN 13 mg/dl (7-18); CREATININE 0.9 mg/dl (0.6-1.3); GLUCOSE,RANDOM 79 mg/dl (74-106); SODIUM 138 mmol/L (136-145)
[2017-09-12 19:10] LABS: ALBUMIN 4.4 g/dl (3.5-5.0); ALK PHOS 59 U/L (32-92); ANION GAP 9 (8-16); CALCIUM 9.3 mg/dl (8.4-10.2); CHLORIDE 102 mmol/L (98-107); CO2 27 mmol/L (22-28); POTASSIUM 4.5 mmol/L (3.5-5.1); SGOT/AST 34 U/L (10-42); SGPT/ALT 56 U/L (10-40)
[2017-09-12 19:13] LABS: URINE BACTERIA FEW /hpf (NEGATIVE); URINE WBC 0-2 (0-2)
[2017-09-12 20:34] LABS: LIPASE 108 U/L (73-393)
== END 2017-09-12 22:00 | disposition home or self-care (01) ==
LOC: FER 18:13
PROC: 3E0337Z Introduction of Electrolytic and Water Balance Substance into Peripheral Vein, Percutaneous Approach (ICD-10-PCS; principal; 2017-09-12)
PROC: 3E033GC Introduction of Other Therapeutic Substance into Peripheral Vein, Percutaneous Approach (ICD-10-PCS; 2017-09-12)
DX: K20.9 Esophagitis, unspecified (principal)
CPT/HCPCS: 36415; 74177-TC; 80053; 81003; 81015; 83690; 85025; 96365; 99282-25; J7030

== ENCOUNTER 2018-04-24 17:57 | Emergency (ER) | payer OTHER ==
[2018-04-24 18:02] VITALS: BP 129/87; PULSE 102; TEMP 98.8; BMI 35.6
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
[2018-04-24] MEDS ORDERED: ONDANSETRON 4 MG/2 ML VIAL IVPUSH ONE (19:51)
[2018-04-24] MEDS ORDERED: SODIUM CHLORIDE 1,000 ML IV STA (19:51)
[2018-04-24] MEDS ORDERED: ONDANSETRON 4 MG/2 ML VIAL ONE (19:59)
[2018-04-24] MEDS ORDERED: PANTOPRAZOLE SODIUM 40 MG VIAL IVPB ONE (20:01)
[2018-04-24] MEDS ORDERED: PANTOPRAZOLE SODIUM 40 MG VIAL ONE (20:05)
[2018-04-24 20:08] LABS: URINE APPEARANCE Clear; URINE BILIRUBIN Negative (NEGATIVE); URINE COLOR Yellow; URINE GLUCOSE (UA) Negative (NEGATIVE); URINE KETONE Negative (NEGATIVE); URINE LEUK ESTERASE Negative (NEGATIVE); URINE NITRITE Negative (NEGATIVE); URINE PROTEIN Negative (NEGATIVE); URINE UROBILINOGEN 0.2 (0.2-1.0)
[2018-04-24 20:13] LABS: BASO % 0.5 % (0-2.0); EOS % 2.5 % (0-4.5); HEMATOCRIT 42.6 % (35.4-49); HEMOGLOBIN 13.8 GM/dl (11.7-16.9); LYMPH % 25.6 % (8-40); MCH 27.9 pg (25.7-33.7); MCHC 32.3 g/dl (32.0-35.9); MEAN CELL VOLUME 86.2 fl (80-96); MEAN PLT VOLUME 10.9 fl (7.5-11.1); MONO % 7.2 % (3.8-10.2); NEUT % 64.2 % (42.8-82.8); PLATELET COUNT 233 K/MM3 (134-434); RBC 4.95 M/mm3 (4.00-5.60); RDW 13.9 % (11.9-15.9); WHITE BLOOD COUNT 10.9 K/mm3 (4.0-10.8)
[2018-04-24 20:17] LABS: ALBUMIN 4.3 g/dl (3.4-5.0); ALK PHOS 76 U/L (45-117); ANION GAP 8 MMOL/L (8-16); BILIRUBIN,TOTAL 0.9 mg/dl (0.2-1); BLOOD UREA NITROGEN 7 mg/dl (7-18); CALCIUM 9.3 mg/dl (8.5-10); CHLORIDE 104 mmol/L (98-107); CO2 24 mmol/L (21-32); CREATININE 0.8 mg/dl (0.55-1.3); GLUCOSE,RANDOM 79 mg/dl (74-106); SGOT/AST 27 U/L (15-37); SGPT/ALT 39 U/L (13-61); SODIUM 136 mmol/L (136-145)
== END 2018-04-24 21:21 | disposition home or self-care (01) ==
LOC: FER 17:57
PROC: 3E033GC Introduction of Other Therapeutic Substance into Peripheral Vein, Percutaneous Approach (ICD-10-PCS; principal; 2018-04-24)
PROC: 3E0337Z Introduction of Electrolytic and Water Balance Substance into Peripheral Vein, Percutaneous Approach (ICD-10-PCS; 2018-04-24)
DX: K52.9 Noninfective gastroenteritis and colitis, unspecified (principal); E11.9 Type 2 diabetes mellitus without complications
CPT/HCPCS: 36415; 80053; 81003; 85025; 96361; 96374; 96375; 99284-25; J7030